=== PATIENT | male | born 1990 | race Caucasian/White ===

== ENCOUNTER 2019-03-23 22:48 | Inpatient (IN) | payer MEDICAID ==
[2019-03-23 23:28] LABS: ADD MAN DIFF? NO
[2019-03-23 23:30] LABS: WHITE BLOOD COUNT 9.7 10^3/ul (4.8-10.8)
[2019-03-23 23:30] LABS: BASOPHILS % 0.3 % (0.0-2.0); EOSINOPHILS # 0.1 10^3/ul (0.0-0.5); EOSINOPHILS % 1.1 % (0.0-7.0); HEMATOCRIT 35.8 % (42.0-52.0); HEMOGLOBIN 11.6 g/dl (14.0-18.0); LYMPHOCYTES # 2.7 10^3/ul (0.8-2.9); LYMPHOCYTES % 27.4 % (15.0-51.0); MEAN CORPUSCULAR HEMOGLOBIN 29.8 pg (29.0-33.0); MEAN CORPUSCULAR HGB CONC 32.4 g/dl (32.0-37.0); MEAN PLATELET VOLUME 8.6 fl (7.4-10.4); MONOCYTE # 0.8 10^3/ul (0.3-0.9); MONOCYTES % 8.3 % (0.0-11.0); NEUTROPHIL # 6.1 10^3/ul (1.6-7.5); NEUTROPHILS % 62.5 % (39.0-77.0); PLATELET COUNT 270 10^3/UL (140-415); RED BLOOD COUNT 3.89 10^6/ul (4.70-6.10); RED CELL DISTRIBUTION WIDTH 13.5 % (11.5-14.5)
[2019-03-23] MEDS: IOHEXOL 300MG/ML 150 ML BTL (23:47)
[2019-03-23] MEDS: SOD CHLORIDE 0.9% 100 ML (23:47)
[2019-03-23 23:50] LABS: ANION GAP 10 (5-13); BLOOD UREA NITROGEN 17 mg/dl (7-20); CALCIUM 9.5 mg/dl (8.4-10.2); CARBON DIOXIDE 28 mmol/L (21-31); CHLORIDE 101 mmol/L (97-110); CHOL/HDL RATIO 2.9 RATIO; CHOLESTEROL 187 mg/dl (100-200); CREATINE KINASE 100 IU/L (23-200); CREATININE 0.92 mg/dl (0.61-1.24); Estimated GFR > 60 mL/min (>60); GLUCOSE 86 mg/dl (70-220); HDL CHOLESTEROL 63 mg/dl (30-63); INR 0.93; LDL CHOLESTEROL,CALCULATED 79 mg/dl; POTASSIUM 4.2 mmol/L (3.5-5.1); PROTIME 12.6 Sec (11.9-14.9); SODIUM 139 mmol/L (135-144); TRIGLYCERIDES 223 mg/dl (0-149)
[2019-03-23 23:51] LABS: PARTIAL THROMBOPLASTIN TIME 25.1 Sec (23.0-35.0)
[2019-03-24] MEDS: SOD CHLORIDE 0.9% 1,000 ML IV (00:02)
[2019-03-24 00:03] LABS: CK INDEX 2.7; TROPONIN-I < 0.012 ng/ml (0.000-0.120)
[2019-03-24 00:05] LABS: CK-MB 2.69 ng/ml (0.0-2.4)
[2019-03-24 00:15] LABS: ETHANOL < 10.0 mg/dl (0-0)
[2019-03-24 01:13] LABS: ADD UMIC YES; UR ASCORBIC ACID NEGATIVE (NEGATIVE); UR BILIRUBIN (Dip) NEGATIVE (NEGATIVE); UR BLOOD (Dip) 1+ mg/dL (NEGATIVE); UR CLARITY CLEAR (CLEAR); UR COLOR COLORLESS (YELLOW); UR GLUCOSE (Dip) NEGATIVE (NEGATIVE); UR KETONES (Dip) NEGATIVE (NEGATIVE); UR LEUKOCYTE ESTERASE (Dip) NEGATIVE Leu/ul (NEGATIVE); UR NITRITE (Dip) NEGATIVE (NEGATIVE); UR RBC 0 /HPF (0-5); UR SPECIFIC GRAVITY (Dip) 1.027 (1.003-1.030); UR TOTAL PROTEIN (Dip) NEGATIVE (NEGATIVE); UR UROBILINOGEN (Dip) NEGATIVE (NEGATIVE); UR WBC 0 /HPF (0-5)
[2019-03-24] MEDS: ASPIRIN 81 MG TAB PO ×2 (01:18→09:21)
[2019-03-24] MEDS ORDERED: ONDANSETRON 4 MG INJ IV ×2 (01:30→02:00)
[2019-03-24] MEDS ORDERED: ACETAMINOPHEN 325 MG TAB PO ×2 (01:30→02:00)
[2019-03-24] MEDS ORDERED: HYDROCODONE/APAP (5/325) TAB PO (02:00)
[2019-03-24] MEDS ORDERED: ALBUTEROL/IPRATROPIUM (NEB) 3 ML AMP HHN (02:00)
[2019-03-24] MEDS ORDERED: NACL 0.9% 3 ML SYG IV (02:00)
[2019-03-24 02:05] LABS: AMPHETAMINE/METHAMPHETAMINE Negative (NEGATIVE); COCAINE Negative (NEGATIVE); OPIATES Negative (NEGATIVE)
[2019-03-24 02:10] LABS: BARBITURATES Negative (NEGATIVE)
[2019-03-24 02:11] LABS: BENZODIAZEPINES Negative (NEGATIVE)
[2019-03-24 02:20] LABS: CANNABINOIDS Positive (NEGATIVE)
[2019-03-24 05:45] LABS: ADD MAN DIFF? NO
[2019-03-24 05:53] LABS: BASOPHIL # 0.1 10^3/ul (0.0-0.1); BASOPHILS % 0.5 % (0.0-2.0); EOSINOPHILS # 0.2 10^3/ul (0.0-0.5); HEMATOCRIT 35.5 % (42.0-52.0); HEMOGLOBIN 11.6 g/dl (14.0-18.0); LYMPHOCYTES # 2.7 10^3/ul (0.8-2.9); LYMPHOCYTES % 26.5 % (15.0-51.0); MEAN CORPUSCULAR HEMOGLOBIN 30.1 pg (29.0-33.0); MEAN CORPUSCULAR HGB CONC 32.7 g/dl (32.0-37.0); MEAN PLATELET VOLUME 8.8 fl (7.4-10.4); MONOCYTES % 9.4 % (0.0-11.0); NEUTROPHIL # 6.3 10^3/ul (1.6-7.5); NEUTROPHILS % 61.2 % (39.0-77.0); PLATELET COUNT 281 10^3/UL (140-415); RED BLOOD COUNT 3.86 10^6/ul (4.70-6.10); RED CELL DISTRIBUTION WIDTH 13.5 % (11.5-14.5)
[2019-03-24 05:53] LABS: WHITE BLOOD COUNT 10.3 10^3/ul (4.8-10.8)
[2019-03-24 06:20] LABS: ALANINE AMINOTRANSFERASE 47 IU/L (13-69); ALBUMIN 4.2 g/dl (3.3-4.9); ALBUMIN/GLOBULIN RATIO 1.61; ALKALINE PHOSPHATASE 52 IU/L (42-121); ANION GAP 8 (5-13); ASPARTATE AMINO TRANSFERASE 35 IU/L (15-46); BILIRUBIN,INDIRECT 0.4 mg/dl (0-1.1); BILIRUBIN,TOTAL 0.4 mg/dl (0.2-1.3); BLOOD UREA NITROGEN 15 mg/dl (7-20); CALCIUM 9.7 mg/dl (8.4-10.2); CARBON DIOXIDE 30 mmol/L (21-31); CHLORIDE 102 mmol/L (97-110); CHOLESTEROL 188 mg/dl (100-200); CREATININE 0.79 mg/dl (0.61-1.24); Estimated GFR > 60 mL/min (>60); GLUCOSE 97 mg/dl (70-220); HDL CHOLESTEROL 61 mg/dl (30-63); LDL CHOLESTEROL,CALCULATED 99 mg/dl; MAGNESIUM 1.9 mg/dl (1.7-2.5); SODIUM 140 mmol/L (135-144); TOTAL PROTEIN 6.8 g/dl (6.1-8.1); TRIGLYCERIDES 139 mg/dl (0-149)
[2019-03-24 06:30] LABS: CREATINE KINASE 103 IU/L (23-200)
[2019-03-24 06:42] LABS: CK INDEX 2.4; TROPONIN-I < 0.012 ng/ml (0.000-0.120)
[2019-03-24 06:58] LABS: CK-MB 2.47 ng/ml (0.0-2.4)
[2019-03-24] MEDS: ENOXAPARIN 40 MG/0.4 ML SYG SC (09:43)
[2019-03-24 11:20] LABS: CREATINE KINASE 84 IU/L (23-200)
[2019-03-24 11:34] LABS: CK INDEX 2.4; CK-MB 2.04 ng/ml (0.0-2.4); TROPONIN-I < 0.012 ng/ml (0.000-0.120)
[2019-03-24] MEDS: ATORVASTATIN 40 MG TAB PO (21:00)
[2019-03-25 06:16] LABS: ADD MAN DIFF? NO
[2019-03-25 06:57] LABS: ANION GAP 8 (5-13); BLOOD UREA NITROGEN 14 mg/dl (7-20); CALCIUM 9.4 mg/dl (8.4-10.2); CARBON DIOXIDE 32 mmol/L (21-31); CHLORIDE 101 mmol/L (97-110); CREATININE 0.72 mg/dl (0.61-1.24); Estimated GFR > 60 mL/min (>60); GLUCOSE 83 mg/dl (70-220); MAGNESIUM 2.1 mg/dl (1.7-2.5); PHOSPHORUS 6.2 mg/dl (2.5-4.9); POTASSIUM 4.7 mmol/L (3.5-5.1); SODIUM 141 mmol/L (135-144)
[2019-03-25 07:02] LABS: C-REACTIVE PROTEIN 0.6 mg/dl (0.0-0.9)
[2019-03-25 07:36] LABS: BASOPHILS % 0.4 % (0.0-2.0); EOSINOPHILS # 0.3 10^3/ul (0.0-0.5); EOSINOPHILS % 5.6 % (0.0-7.0); HEMATOCRIT 34.1 % (42.0-52.0); LYMPHOCYTES # 2.3 10^3/ul (0.8-2.9); LYMPHOCYTES % 43.1 % (15.0-51.0); MEAN CORPUSCULAR HEMOGLOBIN 29.8 pg (29.0-33.0); MEAN CORPUSCULAR HGB CONC 32.3 g/dl (32.0-37.0); MEAN CORPUSCULAR VOLUME 92.4 fl (82.0-101.0); MEAN PLATELET VOLUME 8.9 fl (7.4-10.4); MONOCYTE # 0.6 10^3/ul (0.3-0.9); MONOCYTES % 11.5 % (0.0-11.0); NEUTROPHIL # 2.1 10^3/ul (1.6-7.5); PLATELET COUNT 274 10^3/UL (140-415); RED BLOOD COUNT 3.69 10^6/ul (4.70-6.10); RED CELL DISTRIBUTION WIDTH 13.2 % (11.5-14.5)
[2019-03-25 07:36] LABS: WHITE BLOOD COUNT 5.4 10^3/ul (4.8-10.8)
[2019-03-25 08:01] LABS: ERYTHROCYTE SEDIMENTATION RATE 5 mm/Hr (0-15)
[2019-03-25] MEDS: ASPIRIN 81 MG TAB PO (08:48)
[2019-03-25] MEDS: ENOXAPARIN 40 MG/0.4 ML SYG SC (09:39)
[2019-03-25] MEDS: LORAZEPAM 2 MG INJ IV (13:30)
[2019-03-25] MEDS: ATORVASTATIN 40 MG TAB PO (20:09)
[2019-03-26] MEDS: ASPIRIN 81 MG TAB PO (08:34)
[2019-03-26] MEDS: ENOXAPARIN 40 MG/0.4 ML SYG SC (08:38)
[2019-03-26] MEDS: METHYLPRED. NA SUCC 250 MG in DEXTROSE 5% 50 ML IV (15:35)
[2019-03-26] MEDS: ATORVASTATIN 40 MG TAB PO (20:40)
[2019-03-27] MEDS: ASPIRIN 81 MG TAB PO (09:03)
[2019-03-27] MEDS: ENOXAPARIN 40 MG/0.4 ML SYG SC (09:05)
[2019-03-27] MEDS ORDERED: METHYLPREDNISOLONE 125 MG INJ IV (13:00)
[2019-03-27] MEDS: METHYLPREDNISOLONE 40 MG INJ IV (14:09)
== END 2019-03-27 16:15 | disposition left against medical advice (07) | DRG 74 ==
LOC: 2NE 03-26 23:29 → E/R 22:48 → PP2 03-26 23:39 → 6WM 03-24 01:14
DX: S14.3XXA Injury of brachial plexus, initial encounter (principal); G81.04 Flaccid hemiplegia affecting left nondominant side; G54.5 Neuralgic amyotrophy; X58.XXXA Exposure to other specified factors, initial encounter; Y93.84 Activity, sleeping; Y92.019 Unspecified place in single-family (private) house as the place of occurrence of the external cause; Y99.8 Other external cause status; R29.704 NIHSS score 4; M51.26 Other intervertebral disc displacement, lumbar region; Z79.82 Long term (current) use of aspirin
CPT/HCPCS: 36415; 70450; 70496; 70498; 70553; 71045; 72156; 73221; 80048; 80053; 80061; 80307; 81001; 82550; 82553; 83036; 83735; 84100; 84443; 84484; 85025; 85610; 85651; 85730; 86140; 92610; 93005; 93306; 97161; 97166; 99285-25

== ENCOUNTER 2019-04-23 03:35 | Inpatient (IN) | payer MEDICAID, OTHER ==
[2019-04-23] MEDS: SODIUM CHLORIDE 0.9% 1L BAG IV* ×2 (04:03→04:21)
[2019-04-23] MEDS: morphine 4 MG/ML VIAL IV (04:21)
[2019-04-23] MEDS: ONDANSETRON 4 MG INJ IV ×3 (04:21→08:22)
[2019-04-23] MEDS: ACETAMINOPHEN 325 MG TAB PO (04:21)
[2019-04-23] MEDS: PIPER-TAZO 3.375 GM IV (PMX) 100 ML IVPB ×3 (04:21→20:59)
[2019-04-23 04:50] LABS: ADD MAN DIFF? NO
[2019-04-23 04:53] LABS: WHITE BLOOD COUNT 21.5 10^3/ul (4.8-10.8)
[2019-04-23 04:53] LABS: ABNORMAL IP MESSAGE 1; BASOPHIL # 0.2 10^3/ul (0.0-0.1); BASOPHILS % 0.7 % (0.0-2.0); EOSINOPHILS % 0.1 % (0.0-7.0); HEMATOCRIT 37.5 % (42.0-52.0); HEMOGLOBIN 12.5 g/dl (14.0-18.0); LYMPHOCYTES # 1.3 10^3/ul (0.8-2.9); MEAN CORPUSCULAR HEMOGLOBIN 29.6 pg (29.0-33.0); MEAN CORPUSCULAR HGB CONC 33.3 g/dl (32.0-37.0); MEAN CORPUSCULAR VOLUME 88.9 fl (82.0-101.0); MEAN PLATELET VOLUME 8.5 fl (7.4-10.4); MONOCYTE # 3.1 10^3/ul (0.3-0.9); MONOCYTES % 14.4 % (0.0-11.0); NEUTROPHIL # 16.4 10^3/ul (1.6-7.5); NEUTROPHILS % 76.2 % (39.0-77.0); PLATELET COUNT 339 10^3/UL (140-415); POSITIVE DIFF @See below; RED BLOOD COUNT 4.22 10^6/ul (4.70-6.10); RED CELL DISTRIBUTION WIDTH 12.3 % (11.5-14.5)
[2019-04-23] MEDS ORDERED: ACETAMINOPHEN 325 MG TAB PO ×2 (05:00→06:00)
[2019-04-23 05:12] LABS: ALANINE AMINOTRANSFERASE 24 IU/L (13-69); ALBUMIN 4.3 g/dl (3.3-4.9); ALBUMIN/GLOBULIN RATIO 1.43; ALKALINE PHOSPHATASE 75 IU/L (42-121); ANION GAP 18 (5-13); ASPARTATE AMINO TRANSFERASE 22 IU/L (15-46); BILIRUBIN,INDIRECT 0.7 mg/dl (0-1.1); BILIRUBIN,TOTAL 0.7 mg/dl (0.2-1.3); BLOOD UREA NITROGEN 15 mg/dl (7-20); CALCIUM 9.8 mg/dl (8.4-10.2); CARBON DIOXIDE 27 mmol/L (21-31); CHLORIDE 93 mmol/L (97-110); CREATININE 1.58 mg/dl (0.61-1.24); Estimated GFR 53 mL/min (>60); GLUCOSE 93 mg/dl (70-220); POTASSIUM 4.1 mmol/L (3.5-5.1); SODIUM 138 mmol/L (135-144); TOTAL PROTEIN 7.3 g/dl (6.1-8.1)
[2019-04-23 05:13] LABS: INR 1.07; PARTIAL THROMBOPLASTIN TIME 27.2 Sec (23.0-35.0); PT RATIO 1.1
[2019-04-23 05:31] LABS: TROPONIN-I 0.131 ng/ml (0.000-0.120)
[2019-04-23] MEDS ORDERED: MAGNESIUM HYDROXIDE 30ML CUP PO (06:00)
[2019-04-23] MEDS ORDERED: LORAZEPAM 2 MG INJ IV (06:00)
[2019-04-23] MEDS ORDERED: NITROGLYCERIN (SL) 0.4 MG TAB SL (06:00)
[2019-04-23] MEDS ORDERED: hydrALAzine 20 MG INJ IV (06:00)
[2019-04-23] MEDS ORDERED: DOCUSATE SODIUM 100 MG CAP PO (06:00)
[2019-04-23] MEDS ORDERED: HYDROCODONE/APAP (5/325) TAB PO (06:00)
[2019-04-23] MEDS ORDERED: VANCOMYCIN IV PER PHARMACY XX (06:00)
[2019-04-23] MEDS ORDERED: ONDANSETRON 4 MG INJ IV (06:00)
[2019-04-23] MEDS ORDERED: ALBUTEROL/IPRATROPIUM (NEB) 3 ML AMP HHN (06:00)
[2019-04-23] MEDS ORDERED: NACL 0.9% 3 ML SYG IV (06:00)
[2019-04-23] MEDS: VANCOMYCIN 1 GM (PMX) 250 ML IVPB (06:23)
[2019-04-23] MEDS: FENTAnyl 50 MCG/ML VIAL IV (06:28)
[2019-04-23] MEDS: SOD CHLORIDE 0.9% 1,000 ML IV ×4 (06:28→21:50)
[2019-04-23 07:59] LABS: CREATINE KINASE 129 IU/L (23-200)
[2019-04-23 08:02] LABS: LACTIC ACID 2.1 mmol/L (0.5-2.0)
[2019-04-23 08:12] LABS: CK INDEX 1.8; CK-MB 2.33 ng/ml (0.0-2.4); TROPONIN-I 0.118 ng/ml (0.000-0.120)
[2019-04-23] MEDS: ASPIRIN (EC) 325 MG TAB PO (08:14)
[2019-04-23 08:17] LABS: FREE T4 (FREE THYROXINE) 1.35 ng/dl (0.79-2.35)
[2019-04-23] MEDS: morphine 2 MG INJ IV ×4 (08:22→22:17)
[2019-04-23 09:30] LABS: LACTIC ACID 1.6 mmol/L (0.5-2.0)
[2019-04-23 10:47] LABS: ADD UMIC YES; UR ASCORBIC ACID NEGATIVE (NEGATIVE); UR BILIRUBIN (Dip) NEGATIVE (NEGATIVE); UR BLOOD (Dip) NEGATIVE (NEGATIVE); UR CLARITY CLOUDY (CLEAR); UR COLOR YELLOW (YELLOW); UR GLUCOSE (Dip) NEGATIVE (NEGATIVE); UR HYALINE CAST FEW /HPF (NONE SEEN); UR KETONES (Dip) 1+ mg/dL (NEGATIVE); UR LEUKOCYTE ESTERASE (Dip) NEGATIVE Leu/ul (NEGATIVE); UR MUCUS FEW /HPF (NONE SEEN); UR NITRITE (Dip) NEGATIVE (NEGATIVE); UR RBC 1 /HPF (0-5); UR SPECIFIC GRAVITY (Dip) 1.015 (1.003-1.030); UR TOTAL PROTEIN (Dip) NEGATIVE (NEGATIVE); UR UROBILINOGEN (Dip) 1+ mg/dL (NEGATIVE); UR WBC 7 /HPF (0-5)
[2019-04-23 11:22] LABS: CREATINE KINASE 139 IU/L (23-200)
[2019-04-23 11:35] LABS: CK INDEX 1.8; TROPONIN-I 0.056 ng/ml (0.000-0.120)
[2019-04-23 11:37] LABS: CK-MB 2.56 ng/ml (0.0-2.4)
[2019-04-23] MEDS: VANCOMYCIN 1 GM 250 ML IVPB (15:06)
== END 2019-04-24 | disposition left against medical advice (07) | DRG 872 ==
LOC: FTE 03:35 → TEL 04:45
DX: A41.9 Sepsis, unspecified organism (principal); L02.31 Cutaneous abscess of buttock; N17.9 Acute kidney failure, unspecified
CPT/HCPCS: 71045; 80053; 81001; 82550; 82553; 83605; 84439; 84484; 85025; 85610; 85730; 87040-91; 87086; 93005; 93308